=== PATIENT | male | born 1970 | race Caucasian/White ===

== ENCOUNTER → 2017-12-27 | Outpatient (REF) | payer MEDICAID ==
[~2017-12-27] MED LIST: ALBU8.5H IH; AMIT-106 PO; DIAZ-305 PO; DISU500T2 PO; DOCU-416 PO; FLUO-177 PO; FOLI-68 PO; GABA-549 PO; GLIP-152 PO; GLY5 PO; HYDR-2966 PO; IBUP200C74 PO; LISI-362 PO; METF-410 PO; METF-420 PO; MULT-1379 PO; OMEP40CA48 PO; OXYC-865 PO; PIOG15TA2 PO; PRAM0.1225 PO; PROM-110 PO; SUCR1TAB51 PO; THIA100T62 PO
== END ==
LOC: ZZSENDIN 13:28
PROVIDERS: ATTEND Physician Assistant
DX: F10.10 Alcohol abuse, uncomplicated (principal)
CPT/HCPCS: 80320

== ENCOUNTER 2018-02-27 10:46 | Emergency (ER) | payer SELFPAY ==
[~2018-02-27 10:46] MED LIST changes: -DIA5 PO
[2018-02-27] MEDS ORDERED: NITROGLYCERIN 0.4 MG SUBL SL SCH (10:55)
[2018-02-27] MEDS ORDERED: fentaNYL CITR 100 MCG/2 ML AMP IVP ONE (10:55)
[2018-02-27 11:08] LABS: PLATELET COUNT, AUTOMATED 327 K/uL (150-450)
--- NOTE | 2018-02-27 11:08 | ER Report ---
History and Physical Time Seen By MD: 10:45 Hx. of Stated Complaint: CHEST PAIN AND SHORTNESS OF BREATH THAT STARTED AT 10:30. HPI/ROS CHIEF COMPLAINT: Chest pain HISTORY OF PRESENT ILLNESS: The patient is a 47-year-old male here with acute onset chest pain at approximately 10:30 this morning just located in the left chest wall without radiation. Denies prior history of cardiac disease however does have a prior history of hypertension and diabetes and a remote history of smoking. Denies hyperlipidemia or family history of cardiac disease. Pain has been maximal since time of onset and has been only slightly decreased by sublingual nitroglycerin. Patient is tachycardic at time of evaluation, denies pleuritic chest pain or worsening chest pain on deep inspiration. Patient is afebrile time of evaluation, hemodynamically stable complaining of 10 out of 10 pain. REVIEW OF SYSTEMS: Constitutional: No fever, no chills. Eyes: No discharge. ENT: No sore throat. Cardiovascular: + Left chest pain, no palpitations. Respiratory: No cough, no shortness of breath. Gastrointestinal: No abdominal pain, no vomiting. Genitourinary: No hematuria. Musculoskeletal: No back pain. Skin: No rashes. Neurological: No headache. Allergies: Coded Allergies: morphine (Verified Allergy, Intermediate, HIVES, 05/29/17) Home Meds Reported Medications Amitriptyline Hcl (AMITRIPTYLINE HCL) 25 Mg Tablet, 25 MG PO QHS, #5 TAB 07/28/17 Thiamine Hcl (THIAMINE HCL) 100 Mg Tablet, 100 MG PO QDAY 07/28/17 Multivits,Th W-Fe,Other Min (THERA-M) 1 Each Tablet, 1 EACH PO QDAY 07/28/17 Folic Acid (FOLIC ACID) 1 Mg Tablet, 1 MG PO QDAY, TAB 07/28/17 Pramipexole Di-Hcl (MIRAPEX) 0.125 Mg Tablet, 0.125 MG PO QHS TAKE AT BEDTIME 07/26/17 Hydrochlorothiazide (HYDROCHLOROTHIAZIDE) 25 Mg Tablet, 12.5 MG PO QAM, TAB TAKE HALF A TABLET EVERY MORNING 07/26/17 Gabapentin (GABAPENTIN) 300 Mg Capsule, 1200 MG PO TID, CAPSULE 05/24/17 Metformin Hcl (METFORMIN HCL) 1,000 Mg Tablet, 1 TAB PO BID, TAB GLUCOPHAGE: TAKE TWICE A DAY AT BREAKFAST & SUPPER 05/24/17 Sucralfate (SUCRALFATE) 1 Gm Tablet, 1 GM PO BID TAKE AN HOUR BEFORE BREAKFAST AND AT BEDTIME. 05/24/17 Omeprazole (OMEPRAZOLE) 40 Mg Capsule.dr, 40 MG PO QAM, CAP 05/24/17 Fluoxetine Hcl (FLUOXETINE HCL) 20 Mg Capsule, 40 MG PO QAM, CAPSULE 05/24/17 Lisinopril (LISINOPRIL) 10 Mg Tablet, 40 MG PO QDAY, TAB PRINVIL 05/24/17 Albuterol Sulfate 90 Mcg/Act (PROAIR HFA 90 MCG/ACT) 8.5 Gm Hfa.aer.ad, 2 PUFF IH Q6-8H Y for SHORTNESS OF BREATH, INHALER 01/13/16 Past Medical/Surgical History Hypertension, diabetes Hx Smoking: No Smoking Status: Never Smoker Exposure to Second Hand Smoke?: No Hx Substance Use Disorder: No Hx Alcohol Use: Yes Constitutional Vital Sign - Last 24 Hours 02/27/18 02/27/18 02/27/18 02/27/18 10:48 10:49 10:50 10:53 Temp 97.7 Pulse 116 Resp 24 B/P (MAP) 113/51 (71) 113/51 89/47 (61) Pulse Ox 98 O2 Delivery Non-Rebreather O2 Flow Rate 5.0 02/27/18 02/27/18 02/27/18 02/27/18 10:56 11:01 11:05 11:05 Pulse 111 Resp 19 B/P (MAP) 104/63 (77) 117/59 (78) Pulse Ox 96 O2 Flow Rate 2.0 02/27/18 02/27/18 02/27/18 02/27/18 11:06 11:09 11:15 11:31 Pulse 113 98 Resp 28 16 B/P (MAP) 117/59 (78) 103/59 (74) 93/48 (63) Pulse Ox 96 93 O2 Delivery Nasal Cannula 02/27/18 02/27/18 02/27/18 02/27/18 11:35 12:14 12:19 12:24 Pulse 100 95 B/P (MAP) 92/54 (67) 120/83 (95) Pulse Ox 95 94 02/27/18 02/27/18 02/27/18 02/27/18 13:59 14:00 14:15 14:20 Pulse 85 B/P (MAP) 138/84 (102) 126/95 (105) 142/90 (107) Pulse Ox 95 02/27/18 02/27/18 02/27/18 02/27/18 14:30 15:00 15:15 15:30 B/P (MAP) 153/123 (133) 126/86 (99) 120/90 (100) 124/89 (101) 02/27/18 02/27/18 02/27/18 02/27/18 15:45 16:00 16:30 17:00 Pulse 80 86 73 Resp 18 16 16 B/P (MAP) 121/83 (96) 131/94 (106) 117/93 (101) 115/73 (87) Pulse Ox 93 95 96 O2 Delivery Room Air Room Air Room Air 02/27/18 02/27/18 17:30 18:00 Pulse 86 85 Resp 14 14 B/P (MAP) 126/94 (105) 130/88 (102) Pulse Ox 98 97 O2 Delivery Room Air Room Air Physical Exam General Appearance: The patient is alert, has no immediate need for airway protection and no signs of toxicity. Moderate distress secondary to pain Eyes: Pupils equal and round no pallor or injection. ENT, Mouth: Mucous membranes are moist. Respiratory: There are no retractions, lungs are clear to auscultation. Cardiovascular: Tachycardic without murmurs. Gastrointestinal: Abdomen is soft and non tender, no masses, bowel sounds normal. Neurological: No focal neurological deficits Skin: Warm and dry, no rashes. Musculoskeletal: Neck is supple non tender. Extremities are nontender, nonswollen and have full range of motion. DIFFERENTIAL DIAGNOSIS: After history and physical exam differential diagnosis was considered for chest pain including but not limited to myocardial ischemia, pericarditis pulmonary embolus, chest wall pain, pleural inflammation and pulmonary infectious causes. Medical Decision Making Data Points Result Diagram: 02/27/18 1040 02/27/18 1040 Laboratory Hematology Test 02/27/18 10:40 02/27/18 16:28 Red Blood Count 4.54 M/uL (4.00-5.60) Mean Corpuscular Volume 100.1 fL (80.0-96.0) Mean Corpuscular Hemoglobin 35.7 pg (26.0-33.0) Mean Corpuscular Hemoglobin Concent 35.7 g/dL (32.0-36.0) Red Cell Distribution Width 15.5 % (11.5-14.5) Mean Platelet Volume 8.3 fL (7.2-11.1) Neutrophils (%) (Auto) 64.4 % (39.4-72.5) Lymphocytes (%) (Auto) 19.7 % (17.6-49.6) Monocytes (%) (Auto) 13.8 % (4.1-12.4) Eosinophils (%) (Auto) 1.3 % (0.4-6.7) Basophils (%) (Auto) 0.8 % (0.3-1.4) Nucleated RBC Relative Count (auto) 0.0 /100WBC Neutrophils # (Auto) 8.4 K/uL (2.0-7.4) Lymphocytes # (Auto) 2.6 K/uL (1.3-3.6) Monocytes # (Auto) 1.8 K/uL (0.3-1.0) Eosinophils # (Auto) 0.2 K/uL (0.0-0.5) Basophils # (Auto) 0.1 K/uL (0.0-0.1) Nucleated RBC Absolute Count (auto) 0.00 K/uL Prothrombin Time 13.4 seconds (12.0-14.4) Prothromb Time International Ratio 1.02 Activated Partial Thromboplast Time 29 seconds (23-35) D-Dimer Quantitative (PE/DVT) 0.81 ug/ml (0-0.50) Sodium Level 138 mmol/L (137-145) Potassium Level 3.8 mmol/L (3.5-5.0) Chloride Level 106 mmol/L (98-107) Carbon Dioxide Level 13 mmol/L (22-30) Blood Urea Nitrogen 27 mg/dl (9-21) Creatinine 1.10 mg/dl (0.66-1.25) Glomerular Filtration Rate Calc > 60.0 Random Glucose 223 mg/dl (75-110) Calcium Level 8.8 mg/dl (8.4-10.2) Total Bilirubin 0.8 mg/dl (0.2-1.3) Aspartate Amino Transf (AST/SGOT) 75 U/L (0-35) Alanine Aminotransferase (ALT/SGPT) 45 U/L (0-56) Alkaline Phosphatase 173 U/L (0-126) B-Type Natriuretic Peptide 33 pg/ml (0-100) Total Protein 8.1 g/dl (6.3-8.2) Albumin 4.4 g/dl (3.5-5.0) Lipase 222 U/L (23-300) Troponin I 0.041 ng/ml Chemistry Test 02/27/18 10:40 02/27/18 16:28 White Blood Count 13.0 k/uL (4.5-11.0) Red Blood Count 4.54 M/uL (4.00-5.60) Hemoglobin 16.2 g/dL (14.0-18.0) Hematocrit 45.4 % (42.0-52.0) Mean Corpuscular Volume 100.1 fL (80.0-96.0) Mean Corpuscular Hemoglobin 35.7 pg (26.0-33.0) Mean Corpuscular Hemoglobin Concent 35.7 g/dL (32.0-36.0) Red Cell Distribution Width 15.5 % (11.5-14.5) Platelet Count 327 K/uL (150-450) Mean Platelet Volume 8.3 fL (7.2-11.1) Neutrophils (%) (Auto) 64.4 % (39.4-72.5) Lymphocytes (%) (Auto) 19.7 % (17.6-49.6) Monocytes (%) (Auto) 13.8 % (4.1-12.4) Eosinophils (%) (Auto) 1.3 % (0.4-6.7) Basophils (%) (Auto) 0.8 % (0.3-1.4) Nucleated RBC Relative Count (auto) 0.0 /100WBC Neutrophils # (Auto) 8.4 K/uL (2.0-7.4) Lymphocytes # (Auto) 2.6 K/uL (1.3-3.6) Monocytes # (Auto) 1.8 K/uL (0.3-1.0) Eosinophils # (Auto) 0.2 K/uL (0.0-0.5) Basophils # (Auto) 0.1 K/uL (0.0-0.1) Nucleated RBC Absolute Count (auto) 0.00 K/uL Prothrombin Time 13.4 seconds (12.0-14.4) Prothromb Time International Ratio 1.02 Activated Partial Thromboplast Time 29 seconds (23-35) D-Dimer Quantitative (PE/DVT) 0.81 ug/ml (0-0.50) Glomerular Filtration Rate Calc > 60.0 Calcium Level 8.8 mg/dl (8.4-10.2) Total Bilirubin 0.8 mg/dl (0.2-1.3) Aspartate Amino Transf (AST/SGOT) 75 U/L (0-35) Alanine Aminotransferase (ALT/SGPT) 45 U/L (0-56) Alkaline Phosphatase 173 U/L (0-126) B-Type Natriuretic Peptide 33 pg/ml (0-100) Total Protein 8.1 g/dl (6.3-8.2) Albumin 4.4 g/dl (3.5-5.0) Lipase 222 U/L (23-300) Troponin I 0.041 ng/ml Coagulation Test 02/27/18 10:40 Prothrombin Time 13.4 seconds Prothromb Time International Ratio 1.02 Activated Partial Thromboplast Time 29 seconds D-Dimer Quantitative (PE/DVT) 0.81 ug/ml EKG/Imaging Imaging CTA CHEST WW/O CNTR (PULM ANG) HISTORY: chest pain, d dimer elevated TECHNIQUE: CTA chest with contrast. 3D coronal slab MIPs and 2D reconstructions in the coronal and sagittal planes were also created. One of the following dose optimization techniques was utilized in the performance of this exam: Automated exposure control; adjustment of the mA and/ or kV according to the patient's size; or use of an iterative reconstruction technique. Specific details can be referenced in the facility's radiology CT exam operational policy. CONTRAST: 75 cc of Isovue-370 COMPARISON: None. FINDINGS: Vessels: No pulmonary emboli identified. Heart and pericardium: Negative Mediastinum and hilum: Negative. Lymph nodes: Negative. Lungs/pleura: Negative. Visualized upper abdomen: There is a well-circumscribed 9 mm pulmonary nodule in the mid superior aspect of the right middle lobe (image 170 series 9) no additional parenchymal nodules are identified. There is mild atelectatic pleural based density seen in the left lower lung posteriorly. Lower neck: Negative. Bones/soft tissues: Negative. IMPRESSION: 1. Negative CTA for PE. 2. 9 mm pulmonary nodule seen in the superior mid aspect of the right middle lobe. This appears to be present on a lateral chest film dating back to January 13, 2016 and is similar appearance on the lateral chest film from February 27, 2018 if the film is inverted and has marked contrast technique. If the patient is not at high risk I would recommend a repeat CT scan in 6 months. If the patient is a high risk recommend a repeat CT scan in 3 months. Exam type: CHEST PA AND LAT History: Chest pain Comparison: January 13, 2016 and December 17, 2015. Findings: There is mild hypoventilatory changes from a limited inspiratory effort. There is mild blunting of left costophrenic angle may be secondary to small amount of atelectasis, pleural fluid or pleural thickening. No lobar infiltrates are seen. The cardiac size is normal in size. IMPRESSION: 1. Mild blunting left costophrenic angle may be related to limited inspiratory effort, versus a small amount of pleural thickening or pleural fluid. Or atelectasis. ED Course/Re-evaluation ED Course Patient is a 47-year-old male here with complaints of acute onset of chest pain at approximately 10:30 this morning with no prior history of cardiac disease leading of left-sided chest pain 10 out of 10 relief mildly by nitroglycerin. Patient received aspirin prior to arrival. Patient is tachycardic at time of initial evaluation. Initial cardiac enzyme was undetectable. D-dimer was elevated so a CT pulmonary embolism scan was completed and was negative for pulmonary embolism. I repeated cardiac enzyme 4 hours post time of onset and levels were indeterminate at 0.032 and two hours later at 0.041. Patient reported pain level of 2/10 at time of re evaluation. I discussed the patient with both the hospitalist and [facility] Spanish Lecturer who both recommended further workup in the inpatient setting. I discussed these findings with the patient and he declined admission in spite of voicing understanding of the risks of leaving without complete workup for cardiac etiology of chest pain in the setting of his risk factors of diabetes and hypertension. Patient reported that he would follow up with his PCP the next day. I advised the patient that he may have damage to his heart if he leaves without further workup or treatment and he and his health care analyst voiced understanding. Patient remained hemodynamically stable at time of discharge. Decision to Disposition Date: Feb 27, 2018 Decision to Disposition Time: 17:45 Depart Departure Latest Vital Signs Vital Signs Date Time Temp Pulse Resp B/P (MAP) Pulse Ox O2 Delivery O2 Flow Rate FiO2 02/27/18 18:00 85 14 130/88 (102) 97 Room Air 02/27/18 11:05 2.0 02/27/18 10:49 97.7 Impression: Primary Impression: Anterior chest wall pain Condition: Improved Disposition: HOME OR SELF-CARE Patient Instructions: Chest Pain (ED) Additional Instructions: Please follow up with your family doctor in the next day and consider following up with a [employer] manager [employer] since you may have underlying cardiac disease that is on diagnosed an untreated. As we discussed, your cardiac enzymes were indeterminate and therefore we cannot exclude that you are having heart damage. You were offered admission today at our institution as well as an institution that has cardiology available. Please return at any time for further workup and evaluation. SKYLER ASTUDILLO DO Feb 27, 2018 11:07
[2018-02-27] MEDS ORDERED: LORazepam 2 MG/ML VIAL IVP ONE (11:10)
[2018-02-27 11:29] LABS: INR 1.02
[2018-02-27] MEDS ORDERED: LIDOCAINE 2% VISC SLN 15ML UDC PO ONE (11:35)
[2018-02-27] MEDS ORDERED: MAG HYD/AL HYD/SIMETH 30ML UDC PO ONE (11:35)
[2018-02-27] MEDS ORDERED: ATRO/SCOPOL/HYOSCY/PB 5 ML ELX PO ONE (11:35)
[2018-02-27] MEDS ORDERED: IOPAMIDOL 76% 100 ML INFUS BTL 100 ML ONE (11:48)
[2018-02-27] MEDS ORDERED: NS 0.9% 25 ML BAG 50 ML ONE ×2 (11:49→12:09)
--- NOTE | 2018-02-27 12:06 | RADIOLOGY IMAGING REPORT ---
[place] [facility] [place] NAME[place] Lencho Chiu : 1970 MR: [id number] V: [id number] EXAM DATE: ORDERING PHYSICIAN: SKYLER ASTUDILLO TECHNOLOGIST: Location: [facility] Patient: Lencho Chiu : 1970 Visit/Account:[id number] Date of Sevice: 02/27/2018 Exam type: CHEST PA AND LAT History: Chest pain Comparison: January 13, 2016 and December 17, 2015. Findings: There is mild hypoventilatory changes from a limited inspiratory effort. There is mild blunting of l eft costophrenic angle may be secondary to small amount of atelectasis, pleural fluid or pleural thic kening. No lobar infiltrates are seen. The cardiac size is normal in size. IMPRESSION: 1. Mild blunting left costophrenic angle may be related to limited inspiratory effort, versus a smal l amount of pleural thickening or pleural fluid. Or atelectasis. Report Dictated By: Yelitza Valadez MD at 02/27/2018 12:00 PM Report E-Signed By: Yelitza Valadez MD at 02/27/2018 12:02 PM WSN:[id number]
[2018-02-27] MEDS ORDERED: IOPAMIDOL 76% 75 ML INFUS BTL 75 ML ONE (12:09)
--- NOTE | 2018-02-27 12:42 | EKG ---
FACILITY: [facility] PATIENT NAME: JENA STRONG : [id number] MR: [id number] V: [id number] EXAM DATE: ORDERING PHYSICIAN: SKYLER ASTUDILLO TECHNOLOGIST: YANET Carter Reason : Blood Pressure : / mmHG Vent. Rate : 116 BPM Atrial Rate : 116 BPM P-R Int : 158 ms QRS Dur : 106 ms QT Int : 344 ms P-R-T Axes : 062 -23 033 degrees QTc Int : 478 ms Sinus tachycardia Left axis deviation Nonspecific interventricular conduction delay Artifact in several leads - repeat if needed Confirmed by OH CHERY ([id number]) on 02/27/2018 4:15:23 PM Referred By: WILDA Confirmed By:OH CHERY
[2018-02-27] MEDS ORDERED: NS(*) 0.9% 1000 ML BAG 1,000 ML IV ONE (12:45)
--- NOTE | 2018-02-27 12:58 | RADIOLOGY IMAGING REPORT ---
FACILITY: [facility] [place] PATIENT NAME: Lencho Chiu : 1970 MR: [id number] V: [id number] EXAM DATE: ORDERING PHYSICIAN: SKYLER ASTUDILLO TECHNOLOGIST: Location: [facility] Patient: Lencho Chiu : 1970 Visit/Account:[id number] Date of Sevice: 02/27/2018 CTA CHEST WW/O CNTR (PULM ANG) HISTORY: chest pain, d dimer elevated TECHNIQUE: CTA chest with contrast. 3D coronal slab MIPs and 2D reconstructions in the coronal and sagittal planes were also created. One of the following dose optimization techniques was utilized in the performance of this exam: Autom ated exposure control; adjustment of the mA and/or kV according to the patient's size; or use of an i terative reconstruction technique. Specific details can be referenced in the facility's radiology C T exam operational policy. CONTRAST: 75 cc of Isovue-370 COMPARISON: None. FINDINGS: Vessels: No pulmonary emboli identified. Heart and pericardium: Negative Mediastinum and hilum: Negative. Lymph nodes: Negative. Lungs/pleura: Negative. Visualized upper abdomen: There is a well-circumscribed 9 mm pulmonary nodule in the mid superior as pect of the right middle lobe (image 170 series 9) no additional parenchymal nodules are identified. There is mild atelectatic pleural based density seen in the left lower lung posteriorly. Lower neck: Negative. Bones/soft tissues: Negative. IMPRESSION: 1. Negative CTA for PE. 2. 9 mm pulmonary nodule seen in the superior mid aspect of the right middle lobe. This appears to be present on a lateral chest film dating back to January 13, 2016 and is similar appearance on the lateral chest film from February 27, 2018 if the film is inverted and has marked contrast technique. If the patie nt is not at high risk I would recommend a repeat CT scan in 6 months. If the patient is a high risk recommend a repeat CT scan in 3 months. Report Dictated By: Horacio Moffett MD at 02/27/2018 12:35 PM Report E-Signed By: Horacio Moffett MD at 02/27/2018 12:54 PM WSN:[id number]
[2018-02-27] MEDS ORDERED: DIA5 PO (14:29)
[2018-02-27 18:00] VITALS: BP 130/88
== END 2018-02-27 18:20 | disposition home or self-care (01) ==
LOC: ER 10:52
DX: R07.89 Other chest pain (principal)
CPT/HCPCS: 36415; 71046; 71275; 83690; 83880; 84484; 85025; 85379; 85610; 85730; 93005; 96361; 96374; 99285; J3010; J7030; Q9967; 82040; 82247; 82310; 82374; 82435; 82565; 82947; 84075; 84132; 84155; 84295; 84450; 84460; 84520

== ENCOUNTER → 2018-02-27 | Outpatient (CLI) | payer SELFPAY ==
[~2018-02-27] MED LIST changes: +DIA5 PO; -METF-410 PO; +METF-411 PO; -METF-420 PO; +METF-421 PO; -PIOG15TA2 PO; +PIOG15TA67 PO
== END ==
LOC: AMB 10:31
PROVIDERS: ATTEND Nurse Practitioner
DX: R07.9 Chest pain, unspecified (principal); R06.02 Shortness of breath; E11.9 Type 2 diabetes mellitus without complications; I10 Essential (primary) hypertension; M54.9 Dorsalgia, unspecified
CPT/HCPCS: A0425; A0427

== ENCOUNTER → 2018-06-20 | Outpatient (CLI) | payer SELFPAY ==
[~2018-06-20] MED LIST changes: +DIA5 PO; -METF-411 PO; -METF-421 PO; +METF-450 PO; +METF-452 PO
== END ==
LOC: LAB 14:19
PROVIDERS: ATTEND Internal Medicine Cardiovascular Disease
DX: R00.0 Tachycardia, unspecified (principal)
CPT/HCPCS: 36415; 84443; 85027; 87040

== ENCOUNTER 2019-03-20 16:54 | Emergency (ER) | payer SELFPAY ==
--- NOTE | 2019-03-20 17:01 | ER Report ---
History and Physical Time Seen By MD: 16:58 HPI/ROS CHIEF COMPLAINT: Bilateral foot pain HISTORY OF PRESENT ILLNESS: This is a 48-year-old male presents to emergency department for bilateral foot pain. Patient has a history of peripheral neuropathy, states the last 2 days his neuropathy is been getting worse, his normal gabapentin is not working, he does follow up with the [facility]. He's had intermittent chills, no fevers, no chest pain or short of breath, no other complaints. He does however have a bruise on the top of his left foot and 2 small bruises on the bottom of both feet. REVIEW OF SYSTEMS: Respiratory: No cough, no dyspnea. Cardiovascular: No chest pain, no palpitations. Gastrointestinal: No vomiting, no abdominal pain. Musculoskeletal: As above. Allergies: Coded Allergies: morphine (Verified Allergy, Intermediate, HIVES, 03/20/19) Home Meds Active Scripts Hydrocodone Bit/Acetaminophen (NORCO 5-325 TABLET) 1 Each Tablet, 1 EACH PO Q4- 6H PRN for PAIN, #6 TAB Prov:BERNABE CAMACHO AERIAL TRAM OPERATOR-BC 03/20/19 Reported Medications Insulin Glargine (LANTUS) 100 Unit/Ml Soln, 45 UNIT SUBQ DAILY, ML 03/20/19 Amitriptyline Hcl (AMITRIPTYLINE HCL) 25 Mg Tablet, 25 MG PO QHS, #5 TAB 07/28/17 Thiamine Hcl (THIAMINE HCL) 100 Mg Tablet, 100 MG PO QDAY 07/28/17 Multivits,Th W-Fe,Other Min (THERA-M) 1 Each Tablet, 1 EACH PO QDAY 07/28/17 Folic Acid (FOLIC ACID) 1 Mg Tablet, 1 MG PO QDAY, TAB 07/28/17 Pramipexole Di-Hcl (MIRAPEX) 0.125 Mg Tablet, 0.125 MG PO QHS TAKE AT BEDTIME 07/26/17 Hydrochlorothiazide (HYDROCHLOROTHIAZIDE) 25 Mg Tablet, 12.5 MG PO QAM, TAB TAKE HALF A TABLET EVERY MORNING 07/26/17 Gabapentin (GABAPENTIN) 300 Mg Capsule, 1200 MG PO TID, CAPSULE 05/24/17 Metformin Hcl (METFORMIN HCL) 1,000 Mg Tablet, 1 TAB PO BID, TAB GLUCOPHAGE: TAKE TWICE A DAY AT BREAKFAST & SUPPER 05/24/17 Sucralfate (SUCRALFATE) 1 Gm Tablet, 1 GM PO BID TAKE AN HOUR BEFORE BREAKFAST AND AT BEDTIME. 05/24/17 Omeprazole (OMEPRAZOLE) 40 Mg Capsule.dr, 40 MG PO QAM, CAP 05/24/17 Fluoxetine Hcl (FLUOXETINE HCL) 20 Mg Capsule, 40 MG PO QAM, CAPSULE 05/24/17 Lisinopril (LISINOPRIL) 10 Mg Tablet, 40 MG PO QDAY, TAB PRINVIL 05/24/17 Albuterol Sulfate 90 Mcg/Act (PROAIR HFA 90 MCG/ACT) 8.5 Gm Hfa.aer.ad, 2 PUFF IH Q6-8H PRN for SHORTNESS OF BREATH, INHALER 01/13/16 Past Medical/Surgical History The patient has a past medical and surgical history of myocardial infarction, hypertension, hypercholesterolemia, asthma, GERD, arthritis, wears glasses, type II diabetes, depression, anxiety, diabetic neuropathy, cholecystectomy. Reviewed Nurses Notes: Yes Hx Smoking: No Smoking Status: Never Smoker Exposure to Second Hand Smoke?: No Hx Substance Use Disorder: No Hx Alcohol Use: Yes Constitutional Vital Sign - Last 24 Hours 03/20/19 03/20/19 03/20/19 03/20/19 17:00 18:30 19:00 19:30 Temp 98.2 Pulse 103 107 109 112 Resp 16 B/P (MAP) 147/100 122/105 (111) 132/103 (113) 140/113 (122) Pulse Ox 92 92 96 91 O2 Delivery Room Air Physical Exam General Appearance: The patient is alert, has no immediate need for airway protection and no current signs of toxicity. Eyes: Pupils equal and round no injection. Respiratory: Chest is non tender, lungs are clear to auscultation. Cardiac: regular rate and rhythm. Gastrointestinal: Abdomen is soft and non tender, no masses, bowel sounds normal. Musculoskeletal: Neck: Neck is supple and non tender. Extremities/Skin: have full range of motion and are non tender. Very faint and small bruise to the dorsum of the left foot, very small bruises to the heel of both feet. DIFFERENTIAL DIAGNOSIS: After history and physical exam differential diagnosis was considered for osteomyelitis, diabetic neuropathy, stress fracture. Medical Decision Making EKG/Imaging Imaging PATIENT NAME: Lencho Chiu : 1970 MR: [id number] V: [id number] EXAM DATE: [id number] ORDERING PHYSICIAN: BERNABE CAMACHO TECHNOLOGIST: [place] [facility] [place] : 1970 Visit/Account:[id number] Date of Sevice: 03/20/2019 EXAMINATION: 2 views of both feet HISTORY: Pain, neuropathy, bruise on feet COMPARISON: Right foot films 04/28/2016. FINDINGS: Right foot: There are mild hammertoe deformities of all 5 toes. No evidence of fracture or dislocation in the right foot. No aggressive osseous changes. Small Achilles calcaneal spur. Soft tissues are radiographically unremarkable. Left foot: There are mild hammertoe deformities all 5 toes. No evidence of fracture or dislocation in the left foot. No aggressive osseous changes. The soft tissues are radiographically unremarkable. IMPRESSION: No acute osseous findings in either foot. Report Dictated By: Robert Curry MD at 03/20/2019 7:01 PM Report E-Signed By: Robert Curry MD at 03/20/2019 7:06 PM WSN:[id number] ED Course/Re-evaluation ED Course The patient was admitted to room. A history and physical obtained. Differential diagnoses were considered. An x-ray of bilateral feet negative for any acute osseous abnormalities. I reviewed the results with the patient. He was given 1 hydrocodone for his pain in the emergency department, I did send the patient h ome with a prescription for 6 hydrocodone. I did tell him he needs follow-up with his primary care provider, reevaluate his gabapentin and potentially revaluate alternatives, the patient expressed understanding, his was at the bedside. He had no other questions or concerns and discharged home. Decision to Disposition Date: Mar 20, 2019 Decision to Disposition Time: 19:23 Depart Departure Latest Vital Signs Vital Signs Date Time Temp Pulse Resp B/P (MAP) Pulse Ox O2 Delivery O2 Flow Rate FiO2 03/20/19 19:30 112 140/113 (122) 91 03/20/19 17:00 98.2 16 Room Air Impression: Primary Impression: Diabetic neuropathy Additional Impression: Type II diabetes mellitus Condition: Improved Disposition: HOME OR SELF-CARE Referrals: TALYA CEDENO MD New Scripts Hydrocodone Bit/Acetaminophen (NORCO 5-325 TABLET) 1 Each Tablet 1 EACH PO Q4-6H PRN for PAIN, #6 TAB Prov: BERNABE CAMACHOP-BC 03/20/19 Patient Instructions: Diabetic Peripheral Neuropathy (ED), Narcotic- Analgesic/Acetaminophen (By mouth) Additional Instructions: You have been given a short course of narcotics for your diabetic neuropathy. Please follow-up with Dr. Cedeno for alternatives to your gabapentin for your neuropathy. Please drink plenty of water. Get plenty of rest. Return to the emergency room for any other concerns or worsening symptoms. No evidence of osteomyelitis on your x-rays. Problem Qualifiers Primary Impression: Diabetic neuropathy Diabetes mellitus type: type 2 Diabetes mellitus complication detail: diabetic polyneuropathy Qualified Codes: E11.42 - Type 2 diabetes mellitus with diabetic polyneuropathy Additional Impression: Type II diabetes mellitus Diabetes mellitus intermediate accountant insulin use: unspecified intermediate accountant insulin use status Diabetes mellitus complication status: with other specified complication Qualified Codes: E11.69 - Type 2 diabetes mellitus with other specified complication BERNABE CAMACHO AERIAL TRAM OPERATOR-BC Mar 20, 2019 17:01
[2019-03-20] MEDS ORDERED: LANI SUBQ (17:04)
[2019-03-20] MEDS ORDERED: APAP/HYDROCODONE 325/5 TAB PO ONE (18:25)
[2019-03-20] MEDS ORDERED: HYDR-653 PO (18:34)
--- NOTE | 2019-03-20 19:12 | RADIOLOGY IMAGING REPORT ---
FACILITY: [facility] PATIENT NAME: Lencho Chiu : 1970 MR: [id number] V: [id number] EXAM DATE: ORDERING PHYSICIAN: BERNABE CAMACHO TECHNOLOGIST: Location: [facility] Patient: Lencho Chiu : 1970 Visit/Account:[id number] Date of Sevice: 03/20/2019 EXAMINATION: 2 views of both feet HISTORY: Pain, neuropathy, bruise on feet COMPARISON: Right foot films 04/28/2016. FINDINGS: Right foot: There are mild hammertoe deformities of all 5 toes. No evidence of fracture or dislocatio n in the right foot. No aggressive osseous changes. Small Achilles calcaneal spur. Soft tissues are r adiographically unremarkable. Left foot: There are mild hammertoe deformities all 5 toes. No evidence of fracture or dislocation in the left foot. No aggressive osseous changes. The soft tissues are radiographically unremarkable. IMPRESSION: No acute osseous findings in either foot. Report Dictated By: Robert Curry MD at 03/20/2019 7:01 PM Report E-Signed By: Robert Curry MD at 03/20/2019 7:06 PM WSN:[id number]
[2019-03-20 19:30] VITALS: BP 140/113
== END 2019-03-20 19:35 | disposition home or self-care (01) ==
LOC: ER 16:56
DX: E11.42 Type 2 diabetes mellitus with diabetic polyneuropathy (principal); E11.69 Type 2 diabetes mellitus with other specified complication
CPT/HCPCS: 99283